=== PATIENT | male | born 1985 | race African-American/Black ===

== ENCOUNTER 2018-04-08 20:20 | Emergency (ER) | payer OTHER ==
[2018-04-08] MEDS ORDERED: Azithromycin 250 MG TAB ONE (21:03)
[2018-04-08] MEDS ORDERED: cefTRIAXone\\ROCEPHIN 250 MG VIAL ONE (21:03)
[2018-04-08] MEDS ORDERED: Lidocaine 1% PF 5 ML VIAL ONE (21:03)
[2018-04-10 02:05] LABS: Chlamydia by PCR Not Detected (NotDetected)
[2018-04-10 02:06] LABS: GC by PCR DETECTED (NotDetected)
== END 2018-04-08 21:43 | disposition home or self-care (01) ==
LOC: ERS 20:20 → EDSEX 20:20 → ERS 21:43
DX: Z20.2 Contact with and (suspected) exposure to infections with a predominantly sexual mode of transmission (principal); F17.210 Nicotine dependence, cigarettes, uncomplicated
CPT/HCPCS: 87491; 87591; 96372; J0696; J2001